=== PATIENT | male | born 1965 | race Caucasian/White ===

== ENCOUNTER 2017-09-26 11:20 | Emergency (ER) | payer BC ==
[2017-09-26] MEDS ORDERED: Clopidogrel 75 MG Tab ONE (12:05)
[2017-09-26] MEDS ORDERED: Heparin Sodium 1,000 Units/ML 10 ML MDV ONE (12:06)
[2017-09-26 12:22] VITALS: BP 138/89
[2017-09-26] MEDS ORDERED: Clopidogrel 75 MG Tab PO ONE (12:23)
[2017-09-26] MEDS ORDERED: Aspirin 81 MG Tab.Chew PO ONE (12:27)
[2017-09-26] MEDS ORDERED: atorvaSTATin 80 MG Tab PO ONE (12:28)
[2017-09-26] MEDS ORDERED: Heparin Sodium/D5W 25,000 UNITS/500 ML BAG IV SCH (12:30)
--- NOTE | 2017-09-26 12:52 | ER ---
HISTORY OF PRESENT ILLNESS: A 52-year-old male who comes in with complaints of shortness of breath that has been ongoing for approximately one month. The patient has been treated a couple of times for the shortness of breath as well as a sinus infection. He has been on antibiotics, namely, Levaquin and he has been on inhalers, neb treatments, and prednisone. He does not feel any of this is making him better. In fact, he feels like he is slowly getting worse. He states with exertion, he gets significantly short of breath. He denies any chest pain, but states occasionally he feels a little pressure on the left side of his anterior chest wall. The patient has no history of heart issues. He has not been nauseated when he gets these episodes. The patient has not been feeling sick. He just tells me that he has a hard time getting his breath and it is limiting his activity level recently. PAST MEDICAL HISTORY: Includes: 1. Type 2 diabetes. 2. Hypertension. 3. Hypogonadism. CURRENT MEDICATIONS: Include citalopram, Januvia, Glucophage, Singulair, and lisinopril. OBJECTIVE: GENERAL APPEARANCE: The patient is awake and alert. He is in no respiratory distress. VITAL SIGNS: Reviewed. His pulse is in the 112-120 range. Blood pressure 140s over 80s, O2 sats 96% on room air. HEENT: Ears; TMs are normal. Nares are patent. Oral mucous membranes are moist. Tonsils are not enlarged or injected. Pharynx is not inflamed. NECK: Supple. LUNGS: Clear to auscultation with fairly good air exchange throughout the lung ma. I do not hear any rales, wheezes, or rhonchi. CARDIAC: Heart sounds distinct. S1, S2 present. No murmurs noted. ABDOMEN: Soft and nontender. Bowel sounds are present. SKIN: Warm and dry. LABORATORY AND X-RAY: CBC shows a slightly elevated white count of 13.9, otherwise unremarkable. Hemoglobin is good. Troponin is elevated at 1.165, I believe. Comprehensive metabolic panel shows a nonfasting blood sugar of 373. Sodium level a slightly low, potassium level was normal. BUN is just over 1.0 DIAGNOSIS: NON-STEMI. TREATMENT PLAN: I did consult with hospitalist at [facility]. I could not reach the gun profiler in a timely fashion. He was in with the procedure. I talked with Dr. Krause, and he accepted the care for the patient. The patient was given 4 baby aspirin orally. He was given Plavix 600 mg orally and then heparin drip was started with a 4000 unit bolus, followed by 1000 unit drip, and we will also give Lipitor 80 mg. The patient will be transferred by air ambulance to [facility] as soon as possible. KHANH/STEPHANIA /[id number] MTDD
== END 2017-09-26 13:37 ==
LOC: LB.ED 11:22
DX: I21.4 Non-ST elevation (NSTEMI) myocardial infarction (principal); E11.9 Type 2 diabetes mellitus without complications; I10 Essential (primary) hypertension; Z79.4 Long term (current) use of insulin
CPT/HCPCS: 36415; 71020; 80053; 83880; 84484; 85025; 93005; 96365; 99285; A0425; A0429; A9270; J1644; 96374

== ENCOUNTER 2020-06-26 07:27 | Observation (INO) | payer BC ==
--- NOTE | 2020-06-26 08:40 | EDM.PDOC ---
ED HPI GENERAL MEDICAL PROBLEM - General Chief Complaint: Chest Pain Stated Complaint: CHEST PAIN Time Seen by Provider: 06/26/20 07:50 Source of Information: Reports: Patient History Limitations: Reports: No Limitations - History of Present Illness INITIAL COMMENTS - FREE TEXT/NARRATIVE: Patient presents with 10 days of substernal intermittent sharp chest pain. Pain lasts about a minute and is not provoked(eating)with any specific activity. Denies diaphoresis, any radiation of the pain, N/V/D, SOB, leg pain, or any weakness. . PMH PE while taking testosterone a few years ago and has been taking eliquis daily. No PMH of any surgeries. Patient drinks caffeine daily, denies ETOH or elicit drug use. Onset Date: 06/16/20 Duration: Recurring Location: Reports: Chest Quality: Reports: Sharp, Stabbing Severity: Mild Improves with: Reports: None Worsens with: Reports: None Associated Symptoms: Reports: No Other Symptoms Left Mid-Sternal Chest Pain Score (Numeric/FACES): 4 - Related Data Allergies Allergy/AdvReac Type Severity Reaction Status Date / Time ciprofloxacin Allergy Hives Verified 09/26/17 11:43 Penicillins Allergy Cannot Verified 09/26/17 11:43 Remember Home Meds: Home Meds Citalopram [Citalopram HBr] 40 mg PO DAILY 09/26/17 [History] Apixaban [Eliquis] 5 mg PO BID 06/26/20 [History] Insulin Aspart [NovoLOG] 35 - 50 units SQ TIDMEALS 06/26/20 [History] Omeprazole 40 mg PO DAILY 06/26/20 [History] atorvaSTATin Calcium [Atorvastatin Calcium] 80 mg PO BEDTIME 06/26/20 [History] glipiZIDE [Glucotrol] 5 mg PO DAILY 06/26/20 [History] rOPINIRole HCl [Ropinirole HCl] 4.5 mg PO DAILY 06/26/20 [History] Past Medical History HEENT History: Reports: Impaired Vision, Other (See Below) Other HEENT History: Fluid in right ear Cardiovascular History: Reports: Blood Clots/VTE/DVT, Hypertension Other Cardiovascular History: 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 Respiratory History: Reports: Bronchitis, Recurrent, Other (See Below) Other Respiratory History: Came to the clinic for Bronchitis Gastrointestinal History: Reports: Diverticulosis Genitourinary History: Reports: Other (See Below) Other Genitourinary History: possible UTI or something causing pain Other Musculoskeletal History: L Knee pain Psychiatric History: Reports: Depression Other Psychiatric History: seeing therapist for possible depression or mood disorder Endocrine/Metabolic History: Reports: Diabetes, Type II Dermatologic History: Reports: Other (See Below) Other Dermatologic History: ring worm on left shoulder Social & Family History - Family History Cardiac: Reports: Blood Clots/VTE/DVT, Heart Failure - Tobacco Use Smoking Status *Q: Former Smoker Used Tobacco, but Quit: Yes Month/Year Tobacco Last Used: 1986 - Caffeine Use Caffeine Use: Reports: Soda - Recreational Drug Use Recreational Drug Use: No ED ROS GENERAL - Review of Systems Review Of Systems: See Below Constitutional: Reports: No Symptoms HEENT: Reports: No Symptoms Respiratory: Reports: No Symptoms Cardiovascular: Reports: Chest Pain Endocrine: Reports: No Symptoms GI/Abdominal: Reports: No Symptoms : Reports: No Symptoms Musculoskeletal: Reports: Muscle Stiffness Skin: Reports: No Symptoms Neurological: Reports: No Symptoms Psychiatric: Reports: No Symptoms Hematologic/Lymphatic: Reports: Other (takes eliquis daily) ED EXAM, GENERAL - Physical Exam Exam: See Below Exam Limited By: No Limitations General Appearance: Alert, No Apparent Distress, Obese Ears: Normal External Exam Nose: Normal Inspection Throat/Mouth: Normal Inspection, Normal Voice, No Airway Compromise Head: Atraumatic Neck: Normal Inspection, Non-Tender, Full Range of Motion Respiratory/Chest: No Respiratory Distress, Normal Breath Sounds Cardiovascular: Normal Peripheral Pulses, Regular Rate, Rhythm, No JVD, No Murmur, No Rub Peripheral Pulses: 3+: Carotid (L), Carotid (R), Radial (L), Radial (R), Posterior Tibial (L), Posterior Tibial (R), Dorsalis Pedis (L), Dorsalis Pedis (R) GI/Abdominal: Normal Bowel Sounds, Soft, Non-Tender Back Exam: Normal Inspection, Full Range of Motion. No: CVA Tenderness (R), CVA Tenderness (L) Extremities: Normal Inspection, Normal Range of Motion, Non-Tender (left arm tennis elbow, brace inplace), Normal Capillary Refill (ankle edema bilaterally, patient states he has had this for several months) Neurological: Alert, Oriented, Normal Cognition, Normal Gait, No Motor/Sensory Deficits Psychiatric: Normal Affect, Normal Mood Skin Exam: Warm, Dry, Intact, Normal Color, No Rash Lymphatic: No Adenopathy Course - Vital Signs Last Recorded V/S: Last Vital Signs Temp 97.4 F 06/26/20 09:44 Pulse 73 06/26/20 09:44 Resp 15 06/26/20 09:44 BP 144/66 H 06/26/20 09:44 Pulse Ox 96 06/26/20 09:44 - Orders/Labs/Meds Orders: Active Orders 24 hr Category Date Time Status EKG Documentation Completion [RC] ASDIRECTED Care 06/26/20 07:49 Active Medication Orders Iodixanol (Visipaque 320) 100 ml IV ASDIRECTED PRN PRN Reason: RADIOLOGY EXAM Stop: 06/26/20 23:59 Sodium Chloride (Normal Saline) 50 ml FLUSH ONETIME KIMBERLY Stop: 06/26/20 23:59 Labs: Laboratory Tests 06/26/20 06/26/20 06/26/20 Range/Units 07:59 07:59 07:59 WBC 8.9 (4.0-11.0) K/uL RBC 4.84 (4.50-6.50) M/uL Hgb 15.0 (13.0-18.0) g/dL Hct 43.6 (40.0-54.0) % MCV 90 (76-96) fL MCH 31.0 (27.0-32.0) pg MCHC 34.4 (31.0-35.0) g/dL RDW 13.1 (11.0-16.0) % Plt Count 210 (150-400) K/uL MPV 11.1 H (6.0-10.0) fL Neut % (Auto) 64.9 (45.0-70.0) % Lymph % (Auto) 24.6 (20.0-40.0) % [place] % (Auto) 6.7 (3.0-10.0) % Eos % (Auto) 3.0 (1.0-5.0) % Baso % (Auto) 0.8 H (0.0-0.5) % Neut # (Auto) 5.80 (2.00-7.50) K/uL Lymph # (Auto) 2.20 (1.50-4.00) K/uL [place] # (Auto) 0.60 (0.20-0.80) K/uL Eos # (Auto) 0.27 (0.04-0.40) K/uL Baso # (Auto) 0.07 (0.02-0.10) K/uL Sodium 134 L (136-145) mmol/L Potassium 4.3 (3.5-5.1) mmol/L Chloride 99 (98-107) mmol/L Carbon Dioxide 27.5 (21.0-32.0) mmol/L Anion Gap 11.8 (5.0-15.0) mmol/L BUN 16 (8-26) mg/dL Creatinine 1.00 (0.70-1.30) mg/dL Est Cr Clr Drug Dosing 93.22 mL/min Estimated GFR (MDRD) > 60 (>60) MLS/MIN BUN/Creatinine Ratio 16.0 (6-25) Glucose 337 H D (74-100) mg/dL Calcium 8.3 L (8.5-10.1) mg/dL Total Bilirubin 0.5 (0.0-1.0) mg/dL AST 12 L (15-37) U/L ALT 31 (12-78) U/L Alkaline Phosphatase 135 H (46-116) U/L Troponin I 0.049 D (0.000-0.060) ng/mL B-Natriuretic Peptide 59 D (0-125) pg/mL Total Protein 6.6 (6.4-8.2) g/dL Albumin 3.4 (3.4-5.0) g/dL Globulin 3.2 (2.2-4.2) g/dL Albumin/Globulin Ratio 1.1 (0.8-2.0) Lipase (73-393) U/L 06/26/20 Range/Units 08:49 WBC (4.0-11.0) K/uL RBC (4.50-6.50) M/uL Hgb (13.0-18.0) g/dL Hct (40.0-54.0) % MCV (76-96) fL MCH (27.0-32.0) pg MCHC (31.0-35.0) g/dL RDW (11.0-16.0) % Plt Count (150-400) K/uL MPV (6.0-10.0) fL Neut % (Auto) (45.0-70.0) % Lymph % (Auto) (20.0-40.0) % [place] % (Auto) (3.0-10.0) % Eos % (Auto) (1.0-5.0) % Baso % (Auto) (0.0-0.5) % Neut # (Auto) (2.00-7.50) K/uL Lymph # (Auto) (1.50-4.00) K/uL [place] # (Auto) (0.20-0.80) K/uL Eos # (Auto) (0.04-0.40) K/uL Baso # (Auto) (0.02-0.10) K/uL Sodium (136-145) mmol/L Potassium (3.5-5.1) mmol/L Chloride (98-107) mmol/L Carbon Dioxide (21.0-32.0) mmol/L Anion Gap (5.0-15.0) mmol/L BUN (8-26) mg/dL Creatinine (0.70-1.30) mg/dL Est Cr Clr Drug Dosing mL/min Estimated GFR (MDRD) (>60) MLS/MIN BUN/Creatinine Ratio (6-25) Glucose (74-100) mg/dL Calcium (8.5-10.1) mg/dL Total Bilirubin (0.0-1.0) mg/dL AST (15-37) U/L ALT (12-78) U/L Alkaline Phosphatase (46-116) U/L Troponin I (0.000-0.060) ng/mL B-Natriuretic Peptide (0-125) pg/mL Total Protein (6.4-8.2) g/dL Albumin (3.4-5.0) g/dL Globulin (2.2-4.2) g/dL Albumin/Globulin Ratio (0.8-2.0) Lipase 113 (73-393) U/L Meds: Medications Generic Name Dose Route Start Last Admin Trade Name Freq PRN Reason Stop Dose Admin Iodixanol 100 ml 06/26/20 09:36 Visipaque 320 IV 06/26/20 23:59 ASDIRECTED PRN RADIOLOGY EXAM Sodium Chloride 50 ml 06/26/20 09:45 Normal Saline FLUSH 08/17/20 23:59 ONETIME KIMBERLY Departure - Departure Time of Disposition: 10:30 Disposition: Refer to Observation Condition: Good Clinical Impression: Atypical chest pain Sepsis Event Note (ED) - Evaluation Sepsis Screening Result: No Definite Risk - Focused Exam Vital Signs: Vital Signs Temp Pulse Resp BP Pulse Ox 06/26/20 09:01 71 13 138/71 97 06/26/20 08:40 98.0 F 75 16 163/69 H 96 06/26/20 08:01 78 14 153/60 H 97 06/26/20 07:30 97.5 F 72 14 139/56 L 98 - My Orders Last 24 Hours: My Active Orders 06/26/20 07:49 EKG Documentation Completion [RC] ASDIRECTED - Assessment/Plan Last 24 Hours: My Active Orders 06/26/20 07:49 EKG Documentation Completion [RC] ASDIRECTED Assessment:: Differential diagnosis may include: PE, GA, gastritis, pancreatitis, or pneumonia. Patient has a negative troponin and lipase, so GA or pancreatitis is unlikely. CXR shows no pneumonia or pleural effusions, but shows some changes being new density in right mid lung, radiology is unable to exclude focal subsegmental atelectasis, infiltrate or mass, there is also a linear density in the right lower lung consistent with linear atelectasis or fibrosis. . It is unlikely a PE due to patient taking eliquis, but with previous PE history and discussing CT scan with patient, we will go ahead with the scan. . Plan: Discussed with patient low likelyhood of PE while taking eliquis, although with the history we will PE CT. Monitor patient in OBS unit, repeat troponin and EKG at 1300. Patient is agreeable to the plan.
[2020-06-26] MEDS ORDERED: Iodixanol 652 MG/ML 100 ML Bottle IV PRN (09:36)
[2020-06-26] MEDS ORDERED: Sodium Chloride 0.9% 50 ML SDV FLUSH SCH (09:45)
--- NOTE | 2020-06-26 10:31 | CR ---
DATE OF SERVICE: 06/26/2020 CLINICAL DATA: Chest Pain PA and Lateral Chest Comparison is made to a prior exam dated 26 September 2017. The heart size is normal. There is a subtle density within the right mid lung lateral to the right hilum that was not present on the prior exam. This may be confluence of densities. I cannot exclude focal subsegmental atelectasis, infiltrate, or a mass. There is a linear density in the right lower lung consistent with linear atelectasis or fibrosis. The lungs are otherwise clear. No pneumothorax. No pleural effusions. Follow-up is recommended. If the density in the right mid lung persists a chest CT is recommended. MTDD
--- NOTE | 2020-06-26 10:53 | CT ---
DATE OF SERVICE: 06/26/2020 CLINICAL DATA: Chest Pain Enhanced chest CT: Multi slice acquisition through the chest with IV contrast was performed. No priors. There is suboptimal contrast opacification of the pulmonary arteries. No PE identified. No pneumothorax. No pleural effusions. No aortic aneurysm or dissection. There are mild atelectatic changes in the dependent portion of both lung bases. There are linear densities in both lung bases consistent with linear atelectasis or fibrosis. There are mild atelectatic changes in the dependent portion of both lung bases. There are linear densities in both lung base consistent with linear atelectasis or fibrosis. There is a 5 mm pleural based nodule in the right middle lobe laterally. There is a 3 mm pleural based nodule in the left lower lobe laterally. If the patient is high risk consider 12 month follow-up. If the patient is low risk no follow- up required. The lungs are otherwise clear. The subtle density seen on the prior chest x-ray lateral to the right hilum was most likely confluence of densities. The heart size is normal. No significant pericardial effusion. No hilar or mediastinal adenopathy. No other significant findings. MTDD
--- NOTE | 2020-06-26 13:55 | PCM.PN ---
- General Info Date of Service: 06/26/20 Admission Dx/Problem (Free Text): Chest pain Subjective Update: Patient reports no changes in pain. Dr. Mancilla saw patient and would like him to stay overnight . Patient Is agreeable to stay overnight for observation and repeat troponin and EKG at 0700. He will notify nurses of any changes in his chest pain. Functional Status: Denies: New Symptoms - Review of Systems General: Reports: No Symptoms HEENT: Reports: No Symptoms Pulmonary: Reports: No Symptoms Cardiovascular: Reports: No Symptoms. Denies: Chest Pain (at this time) Gastrointestinal: Reports: No Symptoms Genitourinary: Reports: No Symptoms Musculoskeletal: Reports: No Symptoms Skin: Reports: No Symptoms Neurological: Reports: No Symptoms - Patient Data Vitals - Most Recent: Last Vital Signs Temp 97.4 F 06/26/20 09:44 Pulse 73 06/26/20 09:44 Resp 15 06/26/20 09:44 BP 144/66 H 06/26/20 09:44 Pulse Ox 96 06/26/20 09:44 Weight - Most Recent: 358 lb Lab Results Last 24 Hours: Laboratory Results - last 24 hr 06/26/20 06/26/20 06/26/20 Range/Units 07:59 07:59 07:59 WBC 8.9 (4.0-11.0) K/uL RBC 4.84 (4.50-6.50) M/uL Hgb 15.0 (13.0-18.0) g/dL Hct 43.6 (40.0-54.0) % MCV 90 (76-96) fL MCH 31.0 (27.0-32.0) pg MCHC 34.4 (31.0-35.0) g/dL RDW 13.1 (11.0-16.0) % Plt Count 210 (150-400) K/uL MPV 11.1 H (6.0-10.0) fL Neut % (Auto) 64.9 (45.0-70.0) % Lymph % (Auto) 24.6 (20.0-40.0) % [place] % (Auto) 6.7 (3.0-10.0) % Eos % (Auto) 3.0 (1.0-5.0) % Baso % (Auto) 0.8 H (0.0-0.5) % Neut # (Auto) 5.80 (2.00-7.50) K/uL Lymph # (Auto) 2.20 (1.50-4.00) K/uL [place] # (Auto) 0.60 (0.20-0.80) K/uL Eos # (Auto) 0.27 (0.04-0.40) K/uL Baso # (Auto) 0.07 (0.02-0.10) K/uL Sodium 134 L (136-145) mmol/L Potassium 4.3 (3.5-5.1) mmol/L Chloride 99 (98-107) mmol/L Carbon Dioxide 27.5 (21.0-32.0) mmol/L Anion Gap 11.8 (5.0-15.0) mmol/L BUN 16 (8-26) mg/dL Creatinine 1.00 (0.70-1.30) mg/dL Est Cr Clr Drug Dosing 93.22 mL/min Estimated GFR (MDRD) > 60 (>60) MLS/MIN BUN/Creatinine Ratio 16.0 (6-25) Glucose 337 H D (74-100) mg/dL Calcium 8.3 L (8.5-10.1) mg/dL Total Bilirubin 0.5 (0.0-1.0) mg/dL AST 12 L (15-37) U/L ALT 31 (12-78) U/L Alkaline Phosphatase 135 H (46-116) U/L Troponin I 0.049 D (0.000-0.060) ng/mL B-Natriuretic Peptide 59 D (0-125) pg/mL Total Protein 6.6 (6.4-8.2) g/dL Albumin 3.4 (3.4-5.0) g/dL Globulin 3.2 (2.2-4.2) g/dL Albumin/Globulin Ratio 1.1 (0.8-2.0) Lipase (73-393) U/L 06/26/20 06/26/20 Range/Units 08:49 13:00 WBC (4.0-11.0) K/uL RBC (4.50-6.50) M/uL Hgb (13.0-18.0) g/dL Hct (40.0-54.0) % MCV (76-96) fL MCH (27.0-32.0) pg MCHC (31.0-35.0) g/dL RDW (11.0-16.0) % Plt Count (150-400) K/uL MPV (6.0-10.0) fL Neut % (Auto) (45.0-70.0) % Lymph % (Auto) (20.0-40.0) % [place] % (Auto) (3.0-10.0) % Eos % (Auto) (1.0-5.0) % Baso % (Auto) (0.0-0.5) % Neut # (Auto) (2.00-7.50) K/uL Lymph # (Auto) (1.50-4.00) K/uL [place] # (Auto) (0.20-0.80) K/uL Eos # (Auto) (0.04-0.40) K/uL Baso # (Auto) (0.02-0.10) K/uL Sodium (136-145) mmol/L Potassium (3.5-5.1) mmol/L Chloride (98-107) mmol/L Carbon Dioxide (21.0-32.0) mmol/L Anion Gap (5.0-15.0) mmol/L BUN (8-26) mg/dL Creatinine (0.70-1.30) mg/dL Est Cr Clr Drug Dosing mL/min Estimated GFR (MDRD) (>60) MLS/MIN BUN/Creatinine Ratio (6-25) Glucose (74-100) mg/dL Calcium (8.5-10.1) mg/dL Total Bilirubin (0.0-1.0) mg/dL AST (15-37) U/L ALT (12-78) U/L Alkaline Phosphatase (46-116) U/L Troponin I 0.041 (0.000-0.060) ng/mL B-Natriuretic Peptide (0-125) pg/mL Total Protein (6.4-8.2) g/dL Albumin (3.4-5.0) g/dL Globulin (2.2-4.2) g/dL Albumin/Globulin Ratio (0.8-2.0) Lipase 113 (73-393) U/L Med Orders - Current: Current Medications Iodixanol (Visipaque 320) 100 ml IV ASDIRECTED PRN PRN Reason: RADIOLOGY EXAM Stop: 06/26/20 23:59 Sodium Chloride (Normal Saline) 50 ml FLUSH ONETIME KIMBERLY Stop: 06/26/20 23:59 Sepsis Event Note - Evaluation Sepsis Screening Result: No Definite Risk - Focused Exam Vital Signs: Vital Signs Temp Pulse Resp BP Pulse Ox 06/26/20 09:44 97.4 F 73 15 144/66 H 96 06/26/20 09:01 71 13 138/71 97 06/26/20 08:40 98.0 F 75 16 163/69 H 96 06/26/20 08:01 78 14 153/60 H 97 06/26/20 07:30 97.5 F 72 14 139/56 L 98 - Problem List Review Problem List Initiated/Reviewed/Updated: Yes - My Orders Last 24 Hours: My Active Orders 06/26/20 07:49 EKG Documentation Completion [RC] ASDIRECTED 06/26/20 09:30 Patient Status [ADT] Routine Vital Signs [RC] Q4H 06/26/20 09:33 EKG Documentation Completion [RC] ASDIRECTED 06/26/20 09:34 Telemetry Monitoring [Cardiac Monitoring] [RC] .As Directed 06/26/20 09:36 Iodixanol [Visipaque 320] 100 ml IV ASDIRECTED PRN 06/26/20 09:45 Sodium Chloride 0.9% [Normal Saline] 50 ml FLUSH ONETIME 06/26/20 09:49 CULTURE MRSA SURVEY [RM] Stat 06/26/20 Lunch Consistent Carbohydrate Diet [DIET] 06/26/20 11:46 Resuscitation Status Routine
[2020-06-26 17:18] VITALS: BP 143/55; PULSE 78
--- NOTE | 2020-06-26 19:28 | PCM.DCSUM1 ---
Discharge Summary - Hospital Course Free Text/Narrative:: Patient's troponin x 3 remained negative. Pain has not changed or increased. We discussed outpatient stress test and orders were generated. Patient will be called to schedule. Diagnosis: Stroke: No - Discharge Data Discharge Date: 06/26/20 Discharge Disposition: Home, Self-Care 01 Condition: Good - Referral to Home Health Primary Care Physician: PCP None - Discharge Diagnosis/Problem(s) (1) Atypical chest pain SNOMED Code(s): 803102235 ICD Code: R07.89 - OTHER CHEST PAIN Status: Acute Current Visit: Yes - Patient Instructions Diet: Heart Healthy Diet, Diabetic Diet Activity: No Strenuous Activities - Discharge Plan *PRESCRIPTION DRUG MONITORING PROGRAM REVIEWED*: Not Applicable *COPY OF PRESCRIPTION DRUG MONITORING REPORT IN PATIENT WILVER: Not Applicable Home Medications: Home Meds Citalopram [Citalopram HBr] 40 mg PO DAILY 09/26/17 [History] Apixaban [Eliquis] 5 mg PO BID 06/26/20 [History] Insulin Aspart [NovoLOG] 35 - 50 units SQ TIDMEALS 06/26/20 [History] Omeprazole 40 mg PO DAILY 06/26/20 [History] atorvaSTATin Calcium [Atorvastatin Calcium] 80 mg PO BEDTIME 06/26/20 [History] glipiZIDE [Glucotrol] 5 mg PO DAILY 06/26/20 [History] rOPINIRole HCl [Ropinirole HCl] 4.5 mg PO DAILY 06/26/20 [History] Forms: ED Department Discharge Referrals: PCP,None [Primary Care Provider] - - Discharge Summary/Plan Comment DC Time >30 min.: No Discharge Summary/Plan Comment: Return to ED for any increased or new concerning symptoms including SOB, CP, weakness. Schedule outpatient stress test. - Patient Data Vitals - Most Recent: Last Vital Signs Temp 98.3 F 06/26/20 17:00 Pulse 78 06/26/20 17:00 Resp 14 06/26/20 17:00 BP 143/55 H 06/26/20 17:00 Pulse Ox 100 06/26/20 17:00 Weight - Most Recent: 358 lb I&O - Last 24 hours: Intake & Output 06/26/20 06/26/20 06/26/20 06:59 14:59 22:59 Intake Total 800 Balance 800 Lab Results - Last 24 hrs: Laboratory Results - last 24 hr 06/26/20 06/26/20 06/26/20 Range/Units 07:59 07:59 07:59 WBC 8.9 (4.0-11.0) K/uL RBC 4.84 (4.50-6.50) M/uL Hgb 15.0 (13.0-18.0) g/dL Hct 43.6 (40.0-54.0) % MCV 90 (76-96) fL MCH 31.0 (27.0-32.0) pg MCHC 34.4 (31.0-35.0) g/dL RDW 13.1 (11.0-16.0) % Plt Count 210 (150-400) K/uL MPV 11.1 H (6.0-10.0) fL Neut % (Auto) 64.9 (45.0-70.0) % Lymph % (Auto) 24.6 (20.0-40.0) % [place] % (Auto) 6.7 (3.0-10.0) % Eos % (Auto) 3.0 (1.0-5.0) % Baso % (Auto) 0.8 H (0.0-0.5) % Neut # (Auto) 5.80 (2.00-7.50) K/uL Lymph # (Auto) 2.20 (1.50-4.00) K/uL [place] # (Auto) 0.60 (0.20-0.80) K/uL Eos # (Auto) 0.27 (0.04-0.40) K/uL Baso # (Auto) 0.07 (0.02-0.10) K/uL Sodium 134 L (136-145) mmol/L Potassium 4.3 (3.5-5.1) mmol/L Chloride 99 (98-107) mmol/L Carbon Dioxide 27.5 (21.0-32.0) mmol/L Anion Gap 11.8 (5.0-15.0) mmol/L BUN 16 (8-26) mg/dL Creatinine 1.00 (0.70-1.30) mg/dL Est Cr Clr Drug Dosing 93.22 mL/min Estimated GFR (MDRD) > 60 (>60) MLS/MIN BUN/Creatinine Ratio 16.0 (6-25) Glucose 337 H D (74-100) mg/dL Calcium 8.3 L (8.5-10.1) mg/dL Total Bilirubin 0.5 (0.0-1.0) mg/dL AST 12 L (15-37) U/L ALT 31 (12-78) U/L Alkaline Phosphatase 135 H (46-116) U/L Troponin I 0.049 D (0.000-0.060) ng/mL B-Natriuretic Peptide 59 D (0-125) pg/mL Total Protein 6.6 (6.4-8.2) g/dL Albumin 3.4 (3.4-5.0) g/dL Globulin 3.2 (2.2-4.2) g/dL Albumin/Globulin Ratio 1.1 (0.8-2.0) Lipase (73-393) U/L 06/26/20 06/26/20 06/26/20 Range/Units 08:49 13:00 19:00 WBC (4.0-11.0) K/uL RBC (4.50-6.50) M/uL Hgb (13.0-18.0) g/dL Hct (40.0-54.0) % MCV (76-96) fL MCH (27.0-32.0) pg MCHC (31.0-35.0) g/dL RDW (11.0-16.0) % Plt Count (150-400) K/uL MPV (6.0-10.0) fL Neut % (Auto) (45.0-70.0) % Lymph % (Auto) (20.0-40.0) % [place] % (Auto) (3.0-10.0) % Eos % (Auto) (1.0-5.0) % Baso % (Auto) (0.0-0.5) % Neut # (Auto) (2.00-7.50) K/uL Lymph # (Auto) (1.50-4.00) K/uL [place] # (Auto) (0.20-0.80) K/uL Eos # (Auto) (0.04-0.40) K/uL Baso # (Auto) (0.02-0.10) K/uL Sodium (136-145) mmol/L Potassium (3.5-5.1) mmol/L Chloride (98-107) mmol/L Carbon Dioxide (21.0-32.0) mmol/L Anion Gap (5.0-15.0) mmol/L BUN (8-26) mg/dL Creatinine (0.70-1.30) mg/dL Est Cr Clr Drug Dosing mL/min Estimated GFR (MDRD) (>60) MLS/MIN BUN/Creatinine Ratio (6-25) Glucose (74-100) mg/dL Calcium (8.5-10.1) mg/dL Total Bilirubin (0.0-1.0) mg/dL AST (15-37) U/L ALT (12-78) U/L Alkaline Phosphatase (46-116) U/L Troponin I 0.041 0.040 (0.000-0.060) ng/mL B-Natriuretic Peptide (0-125) pg/mL Total Protein (6.4-8.2) g/dL Albumin (3.4-5.0) g/dL Globulin (2.2-4.2) g/dL Albumin/Globulin Ratio (0.8-2.0) Lipase 113 (73-393) U/L Med Orders - Current: Current Medications Iodixanol (Visipaque 320) 100 ml IV ASDIRECTED PRN PRN Reason: RADIOLOGY EXAM Stop: 06/26/20 23:59 Sodium Chloride (Normal Saline) 50 ml FLUSH ONETIME KIMBERLY Stop: 06/26/20 23:59
== END 2020-06-26 20:10 | disposition home or self-care (01) ==
LOC: LB.ED 07:27 → LB.MS 09:30
PROVIDERS: ADMIT Nurse Practitioner; ATTEND Nurse Practitioner
DX: R07.89 Other chest pain (principal); I10 Essential (primary) hypertension; E11.9 Type 2 diabetes mellitus without complications; Z79.4 Long term (current) use of insulin; Z88.0 Allergy status to penicillin; Z79.899 Other long term (current) drug therapy; Z88.1 Allergy status to other antibiotic agents; Z87.891 Personal history of nicotine dependence
CPT/HCPCS: 36415; 71046; 71260; 80053; 83690; 83880; 84484; 85025; 93005; 99285-25; G0378

== ENCOUNTER 2021-04-16 06:14 | Emergency (ER) | payer BC ==
[2021-04-16 08:06] VITALS: BP 165/81; PULSE 66
--- NOTE | 2021-04-16 08:19 | EDM.PDOC ---
ED HPI GENERAL MEDICAL PROBLEM - General Chief Complaint: Chest Pain Stated Complaint: chest pain Time Seen by Provider: 04/16/21 08:00 Source of Information: Reports: Patient History Limitations: Reports: No Limitations - History of Present Illness INITIAL COMMENTS - FREE TEXT/NARRATIVE: patient presented to the ER with a vague c/o chest discomfort/gasping for air .. this occurred twice last night while sleeping, but he also reports that it has been happening for the last 2-3 months at least. h/o PEs in the past that was resolved - but still on Eliquis. No CP at the moment. no SOB, no fever or cough. no abdominal pain. h/o DMT2, HTN and morbid obesity. No symptoms at the moment. He admits that he snores at night - agrees with that - never has a sleep study before. no CPAP usage. Onset: Gradual Duration: Day(s): (75), Chronic Middle Chest Pain Score (Numeric/FACES): 3 - Related Data Allergies Allergy/AdvReac Type Severity Reaction Status Date / Time ciprofloxacin Allergy Hives Verified 09/26/17 11:43 Penicillins Allergy Cannot Verified 09/26/17 11:43 Remember Home Meds: Home Meds Citalopram [Citalopram HBr] 40 mg PO DAILY 09/26/17 [History] Apixaban [Eliquis] 5 mg PO BID 06/26/20 [History] Insulin Aspart [NovoLOG] 35 - 50 units SQ TIDMEALS 06/26/20 [History] Omeprazole 40 mg PO DAILY 06/26/20 [History] atorvaSTATin Calcium [Atorvastatin Calcium] 80 mg PO BEDTIME 06/26/20 [History] glipiZIDE [Glucotrol] 5 mg PO DAILY 06/26/20 [History] rOPINIRole HCl [Ropinirole HCl] 6 mg PO DAILY 06/26/20 [History] Past Medical History HEENT History: Reports: Impaired Vision, Other (See Below) Other HEENT History: Fluid in right ear Cardiovascular History: Reports: Blood Clots/VTE/DVT, Hypertension, Other (See Below) Other Cardiovascular History: 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 ,NSTEMI Respiratory History: Reports: Bronchitis, Recurrent, Other (See Below) Other Respiratory History: Came to the clinic for Bronchitis Gastrointestinal History: Reports: Diverticulosis Genitourinary History: Reports: Other (See Below) Other Genitourinary History: possible UTI or something causing pain Other Musculoskeletal History: L Knee pain Psychiatric History: Reports: Depression Other Psychiatric History: seeing therapist for possible depression or mood disorder Endocrine/Metabolic History: Reports: Diabetes, Type II Dermatologic History: Reports: Other (See Below) Other Dermatologic History: ring worm on left shoulder Social & Family History - Family History Cardiac: Reports: Blood Clots/VTE/DVT, Heart Failure - Caffeine Use Caffeine Use: Reports: Coffee, Soda Other Caffeine Use: drinks coffee in the winter time and states has one energy drink a day usually in the summer time. he states that he also drinks sugar free mountain dew - Recreational Drug Use Recreational Drug Use: No ED ROS GENERAL - Review of Systems Review Of Systems: See Below Constitutional: Reports: No Symptoms HEENT: Reports: No Symptoms Cardiovascular: Reports: No Symptoms GI/Abdominal: Reports: No Symptoms : Reports: No Symptoms Musculoskeletal: Reports: No Symptoms Skin: Reports: No Symptoms Neurological: Reports: No Symptoms Psychiatric: Reports: No Symptoms ED EXAM, GENERAL - Physical Exam Exam: See Below Exam Limited By: No Limitations General Appearance: Alert, No Apparent Distress Eye Exam: Bilateral Eye: EOMI, PERRL Respiratory/Chest: No Respiratory Distress, Lungs Clear Cardiovascular: Normal Peripheral Pulses GI/Abdominal: Normal Bowel Sounds, Soft, Other (obese) Extremities: Normal Inspection, Pedal Edema Neurological: Alert, Oriented, No Motor/Sensory Deficits Psychiatric: Normal Affect #1 Interpretation EKG Date: 04/16/21 Rhythm: NSR [place]: Normal P-Wave: Present QRS: Normal ST-T: Normal QT: Normal Course - Vital Signs Last Recorded V/S: Last Vital Signs Temp 36.4 C 04/16/21 07:16 Pulse 66 04/16/21 08:01 Resp 16 04/16/21 08:01 BP 165/81 H 04/16/21 08:01 Pulse Ox 99 04/16/21 08:01 - Orders/Labs/Meds Orders: Active Orders 24 hr Category Date Time Status EKG Documentation Completion [RC] ASDIRECTED Care 04/16/21 06:50 Active CXR [Chest 1V Frontal] [CR] Stat Exams 04/16/21 07:24 Ordered Labs: Laboratory Tests 04/16/21 04/16/21 04/16/21 Range/Units 07:00 07:00 07:00 WBC 6.9 (4.0-11.0) K/uL RBC 4.91 (4.50-6.50) M/uL Hgb 15.0 (13.0-18.0) g/dL Hct 44.0 (40.0-54.0) % MCV 90 (76-96) fL MCH 30.5 (27.0-32.0) pg MCHC 34.1 (31.0-35.0) g/dL RDW 12.8 (11.0-16.0) % Plt Count 193 (150-400) K/uL MPV 11.6 H (6.0-10.0) fL Neut % (Auto) 61.2 (45.0-70.0) % Lymph % (Auto) 25.8 (20.0-40.0) % Borden % (Auto) 8.2 (3.0-10.0) % Eos % (Auto) 3.9 (1.0-5.0) % Baso % (Auto) 0.9 H (0.0-0.5) % Neut # (Auto) 4.24 (2.00-7.50) K/uL Lymph # (Auto) 1.79 (1.50-4.00) K/uL Borden # (Auto) 0.57 (0.20-0.80) K/uL Eos # (Auto) 0.27 (0.04-0.40) K/uL Baso # (Auto) 0.06 (0.02-0.10) K/uL D-Dimer, Quantitative < 100 (0-400) ng/mL Sodium (136-145) mmol/L Potassium (3.5-5.1) mmol/L Chloride (98-107) mmol/L Carbon Dioxide (21.0-32.0) mmol/L Anion Gap (5.0-15.0) mmol/L BUN (8-26) mg/dL Creatinine (0.70-1.30) mg/dL Est Cr Clr Drug Dosing mL/min Estimated GFR (MDRD) (>60) MLS/MIN BUN/Creatinine Ratio (6-25) Glucose (74-100) mg/dL Calcium (8.5-10.1) mg/dL Troponin I 0.046 D (0.000-0.060) ng/mL B-Natriuretic Peptide (0-125) pg/mL 04/16/21 04/16/21 Range/Units 07:00 07:00 WBC (4.0-11.0) K/uL RBC (4.50-6.50) M/uL Hgb (13.0-18.0) g/dL Hct (40.0-54.0) % MCV (76-96) fL MCH (27.0-32.0) pg MCHC (31.0-35.0) g/dL RDW (11.0-16.0) % Plt Count (150-400) K/uL MPV (6.0-10.0) fL Neut % (Auto) (45.0-70.0) % Lymph % (Auto) (20.0-40.0) % Borden % (Auto) (3.0-10.0) % Eos % (Auto) (1.0-5.0) % Baso % (Auto) (0.0-0.5) % Neut # (Auto) (2.00-7.50) K/uL Lymph # (Auto) (1.50-4.00) K/uL Borden # (Auto) (0.20-0.80) K/uL Eos # (Auto) (0.04-0.40) K/uL Baso # (Auto) (0.02-0.10) K/uL D-Dimer, Quantitative (0-400) ng/mL Sodium 136 (136-145) mmol/L Potassium 4.5 (3.5-5.1) mmol/L Chloride 99 (98-107) mmol/L Carbon Dioxide 28.0 (21.0-32.0) mmol/L Anion Gap 13.5 (5.0-15.0) mmol/L BUN 8 D (8-26) mg/dL Creatinine 0.85 (0.70-1.30) mg/dL Est Cr Clr Drug Dosing 109.67 mL/min Estimated GFR (MDRD) > 60 (>60) MLS/MIN BUN/Creatinine Ratio 9.4 (6-25) Glucose 351 H (74-100) mg/dL Calcium 8.2 L (8.5-10.1) mg/dL Troponin I (0.000-0.060) ng/mL B-Natriuretic Peptide 117 D (0-125) pg/mL - Re-Assessments/Exams Free Text/Narrative Re-Assessment/Exam: was connected to a monitor vitals - slightly hypertensive 145/85 EKG NSR no acute ischemic changes or arrhythmias labs were ordered including CBC, BMP, TROP, bnp and D-DIMER. all WNL - except for hyperglycemia - which is known for him CXR WNL - no infiltrates asymptomatic at this time Departure - Departure Time of Disposition: 08:18 Disposition: Home, Self-Care 01 Condition: Good Clinical Impression: Atypical chest pain, JANE (obstructive sleep apnea) Referrals: PCP,None [Primary Care Provider] - Sepsis Event Note (ED) - Evaluation Sepsis Screening Result: No Definite Risk - Focused Exam Vital Signs: Vital Signs Temp Pulse Resp BP Pulse Ox 04/16/21 08:01 66 16 165/81 H 99 04/16/21 07:36 73 166/75 H 04/16/21 07:16 36.4 C 72 16 153/72 H 98 04/16/21 06:14 75 16 147/73 H 97 - Problem List & Annotations (1) Morbid obesity with BMI of 45.0-49.9, adult SNOMED Code(s): 725177398, 84418464254067 Code(s): E66.01 - MORBID (SEVERE) OBESITY DUE TO EXCESS CALORIES; Z68.42 - BODY MASS INDEX [BMI] 45.0-49.9, ADULT Status: Acute Priority: Medium Current Visit: Yes (2) Atypical chest pain SNOMED Code(s): 231712942 Code(s): R07.89 - OTHER CHEST PAIN Status: Acute Priority: Low Current Visit: Yes (3) JANE (obstructive sleep apnea) SNOMED Code(s): 84764381 Code(s): G47.33 - OBSTRUCTIVE SLEEP APNEA (ADULT) (PEDIATRIC) Status: Acute Priority: Low Current Visit: Yes - Problem List Review Problem List Initiated/Reviewed/Updated: Yes - My Orders Last 24 Hours: My Active Orders 04/16/21 06:50 EKG Documentation Completion [RC] ASDIRECTED 04/16/21 07:24 CXR [Chest 1V Frontal] [CR] Stat - Assessment/Plan Last 24 Hours: My Active Orders 04/16/21 06:50 EKG Documentation Completion [RC] ASDIRECTED 04/16/21 07:24 CXR [Chest 1V Frontal] [CR] Stat Plan: - recommend to follow up with your PCP in 1-2 weeks to discuss your blood pressure and blood sugar readings - also discuss if sleep study is indicated in your case - recommend to to continue working on your weight loss journey to help with your blood pressure and sugar levels - return to the ER if any concerns or worsening of symptoms
--- NOTE | 2021-04-16 08:42 | CR ---
Date of Service: 04/16/21 Clinical Data: CP AP CHEST: Comparison is made to a prior exam dated 10/03/20. The heart size is normal. The left costophrenic angle is cut off. The visualized lungs are clear. No pneumothorax. No pleural effusions. No evidence of acute intrathoracic disease. [id number] [facility]
== END 2021-04-16 08:32 | disposition home or self-care (01) ==
LOC: LB.ED 06:14
DX: R07.89 Other chest pain (principal); G47.33 Obstructive sleep apnea (adult) (pediatric); I10 Essential (primary) hypertension; I25.2 Old myocardial infarction; E11.9 Type 2 diabetes mellitus without complications; Z79.01 Long term (current) use of anticoagulants; Z79.899 Other long term (current) drug therapy; Z88.0 Allergy status to penicillin; Z88.1 Allergy status to other antibiotic agents
CPT/HCPCS: 36415; 71045; 80048; 83880; 84484; 85025; 85379; 93005; 99285-25

== ENCOUNTER 2023-05-04 06:24 | Emergency (ER) | payer OTHER ==
[2023-05-04 06:49] VITALS: BP 161/81; PULSE 76
[2023-05-04 08:23] LABS: APPEARANCE,URINE CLEAR (CLEAR); BASOPHILS ABSOLUTE AUTO 0.08 K/uL (0.02-0.10); BASOPHILS PERCENT AUTO 0.9 % (0.0-0.5); BILIRUBIN,URINE NEGATIVE (NEGATIVE); COLOR,URINE YELLOW; EOSINOPHILS ABSOLUTE AUTO 0.27 K/uL (0.04-0.40); EOSINOPHILS PERCENT AUTO 3.2 % (1.0-5.0); GLUCOSE,URINE 500 mg/dL (NEGATIVE); HEMATOCRIT 45.5 % (40.0-54.0); HEMOGLOBIN 15.6 g/dL (13.0-18.0); KETONES,URINE NEGATIVE (NEGATIVE); LEUKOCYTE ESTERASE,URINE NEGATIVE (NEGATIVE); LYMPHOCYTES ABSOLUTE AUTO 2.31 K/uL (1.50-4.00); MEAN CORPUSCULAR HEMOGLOBIN 31.5 pg (27.0-32.0); MEAN CORPUSCULAR HGB CONC 34.3 g/dL (31.0-35.0); MEAN CORPUSCULAR VOLUME 92 fL (76-96); MEAN PLATELET VOLUME 10.8 fL (6.0-10.0); MONOCYTES ABSOLUTE AUTO 0.65 K/uL (0.20-0.80); MONOCYTES PERCENT AUTO 7.6 % (3.0-10.0); NEUTROPHILS ABSOLUTE AUTO 5.23 K/uL (2.00-7.50); NEUTROPHILS PERCENT AUTO 61.3 % (45.0-70.0); NITRITE,URINE NEGATIVE (NEGATIVE); OCCULT BLOOD,URINE TRACE-INTACT (NEGATIVE); PLATELET COUNT,PLT 232 K/uL (150-400); PROTEIN,URINE NEGATIVE (NEGATIVE); RED BLOOD CELL COUNT 4.96 M/uL (4.50-6.50); RED CELL DISTRIBUTION WIDTH 13.5 % (11.0-16.0); UROBILINOGEN,URINE 0.2 E.U./dL (0.2-1.0); WHITE BLOOD CELL COUNT,WBC 8.5 K/uL (4.0-11.0)
[2023-05-04 08:32] LABS: RBC,URINE 0-5 /HPF; SQUAMOUS EPITHELIAL CELLS,UR OCCASIONAL /HPF; WBC,URINE 0-5 /HPF
[2023-05-04 08:41] LABS: CHOLESTEROL HDL 65 mg/dL (40-60); CHOLESTEROL TOTAL 203 mg/dL (120-200)
[2023-05-04 08:45] LABS: HEMOGLOBIN A1C 10.8 % (< 5.7)
[2023-05-04 08:46] LABS: ALBUMIN 3.7 g/dL (3.4-5.0); ANION GAP 9.2 mmol/L (5.0-15.0); BILIRUBIN TOTAL 0.4 mg/dL (0.0-1.0); BUN/CREATININE RATIO 19.8 (6-25); CALCIUM 9.1 mg/dL (8.5-10.1); CARBON DIOXIDE,CO2 29.8 mmol/L (21.0-32.0); CREATININE 0.96 mg/dL (0.70-1.30); EST CRCL DRUG DOSING (CG) 94.79 mL/min; PROTEIN TOTAL,TP 7.3 g/dL (6.4-8.2); TROPONIN I HIGH SENSITIVITY 28.1 pg/ml (<=60.4)
== END 2023-05-04 09:07 | disposition home or self-care (01) ==
LOC: LB.ED 06:24
DX: E11.65 Type 2 diabetes mellitus with hyperglycemia (principal); Z88.1 Allergy status to other antibiotic agents; Z88.0 Allergy status to penicillin; Z79.4 Long term (current) use of insulin
CPT/HCPCS: 36415; 80053; 81001; 82465; 83036; 83690; 83718; 84484; 85025; 93005; 93010; 99283; 99285